=== PATIENT | male | born 1985 | race Caucasian/White ===

== ENCOUNTER 2017-11-15 20:07 | Emergency (ER) | payer BC ==
[~2017-11-15] VITALS: Ht 188 cm; Wt 98.0 kg
--- NOTE | 2017-11-15 21:28 | NUR ---
PT CAME FROM HOME, C/O L CHEST WALL PAIN X 2 WEEKS, DULL/NON RADIATING, BREATHING EVEN/UNLABORED, SKIN WARM/DRY VS STABLE/WNL
--- NOTE | 2017-11-15 23:17 | NUR ---
PT SITTING IN BED, A/O X 4, BREATHING EVEN/UNLABORED, NO C/O PAIN AT THIS TIME, XR RESULTED OK TO D/C PER ER PROVIDER
[2017-11-15 23:18] VITALS: BP 117/71
== END 2017-11-15 23:19 | disposition home or self-care (01) ==
LOC: ER 20:14
DX: R07.89 Other chest pain (principal)
CPT/HCPCS: 71045; 93005; 99284; A4606; Z7610